=== PATIENT | female | born 1980 | race Caucasian/White ===

== ENCOUNTER 2016-12-25 21:27 | Inpatient (IN) | payer OTHER ==
[~2016-12-25] VITALS: Ht 172 cm; Wt 85.3 kg
[2016-12-25] MEDS ORDERED: RINGERS SOLUTION,LACTATED 1,000 ML IV PRN (21:28)
[2016-12-25] MEDS ORDERED: OXYTOCIN 30 UNITS/LACT RINGERS 500 ML IV ONE (21:28)
[2016-12-25] MEDS ORDERED: METOCLOPRAMIDE HCL 5 MG/ML 2 ML VIAL IVP PRN (21:30)
[2016-12-25] MEDS ORDERED: CITRIC ACID/SODIUM CITRATE 30 ML SOLUTION UDCUP PO PRN (21:30)
[2016-12-25] MEDS ORDERED: OXYGEN THERAPY IH SCH (21:30)
[2016-12-25 22:01] VITALS: BP 119/80
[2016-12-25] MEDS ORDERED: PREN1TAB80 PO (22:05)
[2016-12-25] MEDS ORDERED: METF500T4 PO (22:05)
[2016-12-25 22:21] LABS: GLUCOSE,POINT OF CARE 108 MG/DL (70-110)
[2016-12-25 22:45] LABS: BASOPHILS % (AUTO) 0.1 % (0.0-2.0); EOSINOPHILS % (AUTO) 0.1 % (1.0-6.0); HEMATOCRIT 34.9 % (36-46); HEMOGLOBIN 11.3 g/dL (12.0-16.0); LYMPHOCYTES # (AUTO) 2.2 K/uL (1.0-4.8); MEAN CORPUSCULAR HEMOGLOBIN 28.6 pg (26.0-34.0); MEAN CORPUSCULAR HGB CONC 32.5 G/dL (31.0-37.0); MEAN CORPUSCULAR VOLUME 88 fL (80-100); MONOCYTES # (AUTO) 0.6 K/uL (0.1-1.0); MONOCYTES % (AUTO) 6.2 % (2.0-9.0); NEUTROPHILS % (AUTO) 71.6 % (40.0-70.0); PLATELET COUNT (AUTO) 285 K/uL (150-450); RED BLOOD CELL COUNT(AUTO) 3.96 MIL/uL (4.00-5.20); WHITE BLOOD COUNT (AUTO) 9.8 K/uL (4.5-11.0)
[2016-12-25] MEDS: RINGERS SOLUTION,LACTATED 1,000 ML IV SCH (22:58)
[2016-12-26] MEDS: MISOPROSTOL 25 MCG TABLET VG SCH ×2 (00:34→04:56)
[2016-12-26 02:17] LABS: GLUCOSE,POINT OF CARE 83 MG/DL (70-110)
[2016-12-26] MEDS: FentaNYL CITRATE-PF 100 MCG/2 ML VIAL IVP PRN ×4 (06:14→09:25)
[2016-12-26 06:37] LABS: GLUCOSE,POINT OF CARE 74 MG/DL (70-110)
[2016-12-26] MEDS: RINGERS SOLUTION,LACTATED 1,000 ML IV SCH (07:21)
[2016-12-26] MEDS ORDERED: BUPIVACAINE HCL/PF 0.25% 10 ML VIAL ONE (09:40)
[2016-12-26] MEDS ORDERED: FentaNYL/BUPIV 0.125%/NS/PF 200 ML ED ONE (09:40)
[2016-12-26] MEDS ORDERED: FentaNYL/BUPIV 0.125%/NS/PF 200 ML ED PRN (10:35)
[2016-12-26] MEDS ORDERED: NALBUPHINE HCL 10 MG/ML VIAL IVP PRN (10:45)
[2016-12-26] MEDS ORDERED: DiphenhydrAMINE HCL 50 MG/ML VIAL IVP PRN (10:45)
[2016-12-26] MEDS ORDERED: ONDANSETRON HCL 4 MG/2 ML VIAL IVP PRN (10:45)
[2016-12-26] MEDS ORDERED: LIDOCAINE HCL 2%/EPI 1:200,000/PF 10 ML VIAL ONE (10:57)
[2016-12-26] MEDS ORDERED: AMPICILLIN SODIUM 2 GM/NS 100 ML IV ONE (11:00)
[2016-12-26] MEDS ORDERED: CLINDAMYCIN 900 MG/D5% WATER 50 ML IV SCH (11:30)
[2016-12-26] MEDS ORDERED: RINGERS SOLUTION,LACTATED 1,000 ML IV ONE (13:51)
[2016-12-26] MEDS ORDERED: GLYCERIN/WITCH HAZEL LEAF 40 PADS JAR TP PRN (14:00)
[2016-12-26] MEDS ORDERED: LIDOCAINE HCL/PF 1% 30 ML VIAL INJ PRN (14:00)
[2016-12-26] MEDS ORDERED: IBUPROFEN 600 MG TABLET PO PRN (14:00)
[2016-12-26] MEDS ORDERED: OxyCODONE HCL/ACETAMINOPHEN 5-325 MG TABLET PO PRN ×2 (14:00)
[2016-12-26] MEDS ORDERED: LANOLIN 7 GM OINTMENT TP PRN (16:30)
[2016-12-26] MEDS ORDERED: BENZOCAINE 20%/MENTHOL 56 GM SPRAY CANISTER TP ONE (16:30)
[2016-12-26] MEDS: IBUPROFEN 600 MG TABLET PO SCH ×2 (18:19→23:48)
[2016-12-26] MEDS: SENNA/DOCUSATE SODIUM 187-50 MG TABLET PO SCH (21:50)
[2016-12-27] MEDS: IBUPROFEN 600 MG TABLET PO SCH ×2 (05:46→12:51)
[2016-12-27 06:19] LABS: BASOPHILS # (AUTO) 0.05 K/uL (0.00-0.20); BASOPHILS % (AUTO) 0.4 % (0.0-2.0); EOSINOPHILS # (AUTO) 0.03 K/uL (0.00-0.70); EOSINOPHILS % (AUTO) 0.24 % (1.0-6.0); HEMATOCRIT 28.8 % (36-46); HEMOGLOBIN 9.7 g/dL (12.0-16.0); LYMPHOCYTES # (AUTO) 2.5 K/uL (1.0-4.8); LYMPHOCYTES % (AUTO) 19.3 % (22.0-44.0); MEAN CORPUSCULAR HEMOGLOBIN 29.6 pg (26.0-34.0); MEAN CORPUSCULAR HGB CONC 33.6 G/dL (31.0-37.0); MEAN CORPUSCULAR VOLUME 88 fL (80-100); MONOCYTES % (AUTO) 7.4 % (2.0-9.0); NEUTROPHILS # (AUTO) 9.4 K/uL (1.8-7.7); NEUTROPHILS % (AUTO) 72.7 % (40.0-70.0); RED BLOOD CELL COUNT(AUTO) 3.28 MIL/uL (4.00-5.20); RED CELL DISTRIBUTION WIDTH 15.4 % (11.5-14.5); WHITE BLOOD COUNT (AUTO) 12.9 K/uL (4.5-11.0)
[2016-12-27] MEDS: SENNA/DOCUSATE SODIUM 187-50 MG TABLET PO SCH (09:24)
[2016-12-27] MEDS ORDERED: IBUP-2070 PO (13:08)
[2016-12-27] MEDS ORDERED: DSS100 PO (13:08)
== END 2016-12-27 14:45 | disposition home or self-care (01) | DRG 774 ==
LOC: OBSVTOIN 21:27 → 4S 21:27
PROVIDERS: ADMIT Obstetrics & Gynecology; ATTEND Obstetrics & Gynecology
PROC: 10E0XZZ Delivery of Products of Conception, External Approach (ICD-10-PCS; principal; 2016-12-26)
PROC: 0KQM0ZZ Repair Perineum Muscle, Open Approach (ICD-10-PCS; 2016-12-26)
PROC: 0W8NXZZ Division of Female Perineum, External Approach (ICD-10-PCS; 2016-12-26)
PROC: 00HU33Z Insertion of Infusion Device into Spinal Canal, Percutaneous Approach (ICD-10-PCS; 2016-12-26)
PROC: 3E0R3CZ (ICD-10-PCS; 2016-12-26)
DX: O99.824 Streptococcus B carrier state complicating childbirth (principal); O24.92 Unspecified diabetes mellitus in childbirth; O70.1 Second degree perineal laceration during delivery; Z3A.39 39 weeks gestation of pregnancy; Z37.0 Single live birth; Z88.1 Allergy status to other antibiotic agents
CPT/HCPCS: 82962; 86850; 86900; 86901; J0290; J2765; J3010; J3490; J7120